=== PATIENT | female | born 1990 | race Caucasian/White ===

== ENCOUNTER 2017-08-26 21:09 | Emergency (ER) | payer SELFPAY ==
[~2017-08-26] VITALS: Ht 172.7 cm; Wt 86.4 kg
[~2017-08-26 21:09] MED LIST: CHILDREN'S VITA1 CTB PO; FLEXERIL 1010 MG/TAB PO; MOTRIN 200200 MG/TAB PO; NORCO 325 MG-51 TAB PO; TYLENOL 325MG325 MG; ULTRAM 50MG TAB50 MG PO; ZOFRAN8 MG PO; [UNRECOGNIZED DRUG - SUPPLY]
[2017-08-26 22:04] LABS: BASO # 0.1 (0.0-0.2); BASO % 0.7 % (0.0-2.0); EOS # 0.3 (0.0-0.7); EOS % 1.9 % (0-4.0); GRAN # 10.8 (1.4-6.5); GRAN % 71.5 % (42.2-75.2); HEMATOCRIT 43.5 % (37.0-47.0); HEMOGLOBIN 14.8 g/dl (12.5-16.0); LYMPH % 19.9 % (20.0-51.0); MEAN CELL VOLUME 88 fl (80.0-100.0); MEAN CORPUSCULAR HEMOGLOBIN 30 pg (27.0-31.0); MEAN CORPUSCULAR HGB CONC 34 g/dl (33.0-37.0); MEAN PLATELET VOLUME 10.9 fl (7.4-10.4); MONO # 0.9 (0.1-0.6); MONO % 5.6 % (1.7-9.3); PLATELET COUNT 214 K/mm3 (130-400); RED BLOOD COUNT 4.93 M/mm3 (4.10-5.30); REDCELL DISTRIBUTION WIDTH-CV 13.4 % (11.5-14.5)
[2017-08-26 22:16] LABS: ALBUMIN 4.5 gm/dL (3.5-5.0); BILIRUBIN,TOTAL 0.3 mg/dL (0.0-1.0); CALCIUM 9.6 mg/dL (8.4-10.2); CREATININE, serum 0.88 mg/dL (0.52-1.25); POTASSIUM 3.4 mmol/L (3.4-5.0); TOTAL PROTEIN 7.1 gm/dL (6.4-8.2)
[2017-08-26 23:22] VITALS: TEMP 98.5
[2017-08-27] MEDS ORDERED: ANTIVERT 25MG25 MG PO (00:07)
[2017-08-27 00:50] VITALS: BP 106/77; PULSE 68
== END 2017-08-27 00:52 | disposition home or self-care (01) ==
LOC: COL.ER 21:09
PROVIDERS: Nurse Practitioner
DX: R42 Dizziness and giddiness (principal); R51 Headache; F17.210 Nicotine dependence, cigarettes, uncomplicated; Z90.49 Acquired absence of other specified parts of digestive tract; Z90.89 Acquired absence of other organs
CPT/HCPCS: J1200; J1885; J2550; J7030

== ENCOUNTER 2018-04-15 10:38 | Emergency (ER) | payer OTHER ==
[~2018-04-15] VITALS: Ht 172.7 cm; Wt 89.1 kg
[~2018-04-15 10:38] MED LIST changes: +ANTIVERT 25MG25 MG PO
[2018-04-15 10:47] VITALS: TEMP 97.9
[2018-04-15 11:07] LABS: COLLECTION METHOD CLEAN CATCH
[2018-04-15 11:34] LABS: AMORPHOUS CRYSTAL Present /uL; PH 8 (5-8); URINE APPEARANCE Cloudy; URINE BACTERIA None Seen /hpf; URINE BILIRUBIN Negative (NEGATIVE); URINE BLOOD Negative (NEGATIVE); URINE COLOR Yellow; URINE GLUCOSE Negative (NEGATIVE); URINE KETONE Negative (NEGATIVE); URINE LEUKOCYTE ESTERASE Trace (NEGATIVE); URINE NITRATE Negative (NEGATIVE); URINE PROTEIN(semi-quant) Negative (NEGATIVE); URINE UROBILINOGEN Negative (NEGATIVE)
[2018-04-15 12:02] LABS: BASO # 0.1 (0.0-0.2); BASO % 0.5 % (0.0-2.0); EOS # 0.5 (0.0-0.7); EOS % 3.9 % (0-4.0); GRAN # 9.7 (1.4-6.5); GRAN % 72.7 % (42.2-75.2); HEMATOCRIT 43.3 % (37.0-47.0); HEMOGLOBIN 14.4 g/dl (12.5-16.0); LYMPH # 2.4 (1.2-3.4); LYMPH % 17.7 % (20.0-51.0); MEAN CELL VOLUME 88 fl (80.0-100.0); MEAN CORPUSCULAR HEMOGLOBIN 29 pg (27.0-31.0); MEAN CORPUSCULAR HGB CONC 33 g/dl (33.0-37.0); MEAN PLATELET VOLUME 10.7 fl (7.4-10.4); MONO # 0.6 (0.1-0.6); MONO % 4.7 % (1.7-9.3); PLATELET COUNT 239 K/mm3 (130-400); RED BLOOD COUNT 4.91 M/mm3 (4.10-5.30); REDCELL DISTRIBUTION WIDTH-CV 14.2 % (11.5-14.5)
[2018-04-15 12:24] LABS: BILIRUBIN,TOTAL 0.3 mg/dL (0.0-1.0); C-REACTIVE PROTEIN 1.3 mg/dL (0.0-0.9); CALCIUM 8.8 mg/dL (8.4-10.2); CREATININE, serum 0.82 mg/dL (0.52-1.25); TOTAL PROTEIN 6.9 gm/dL (6.4-8.2)
[2018-04-15 14:08] VITALS: BP 103/77; PULSE 67
[2018-04-15] MEDS ORDERED: CIPRO 500MG TA500 MG PO (14:14)
[2018-04-15] MEDS ORDERED: ZOFRAN ODT4 MG PO (14:14)
[2018-04-15] MEDS ORDERED: FLAGYL500 MG PO (14:14)
== END 2018-04-15 14:26 | disposition home or self-care (01) ==
LOC: COL.ER 10:38
PROVIDERS: Physician Assistant
DX: K52.9 Noninfective gastroenteritis and colitis, unspecified (principal); F17.210 Nicotine dependence, cigarettes, uncomplicated; F12.10 Cannabis abuse, uncomplicated; Z90.49 Acquired absence of other specified parts of digestive tract; Z88.2 Allergy status to sulfonamides; Z88.8 Allergy status to other drugs, medicaments and biological substances
CPT/HCPCS: J1885; J2405; J7030; Q9967

== ENCOUNTER 2022-02-26 18:06 | Emergency (ER) | payer SELFPAY ==
[~2022-02-26] VITALS: Ht 172.7 cm; Wt 88.6 kg
[~2022-02-26 18:06] MED LIST changes: +CIPRO 500MG TA500 MG PO; +FLAGYL500 MG PO; +ZOFRAN ODT4 MG PO
[2022-02-26 18:11] VITALS: TEMP 98.9
[2022-02-26 18:38] LABS: BASO # 0.1 K/mm3 (0.0-0.2); BASO % 0.7 % (0.0-2.0); EOS # 0.2 K/mm3 (0.0-0.7); EOS % 2.9 % (0.0-4.0); GRAN # 5.9 K/mm3 (1.4-6.5); GRAN % 84.4 % (42.2-75.2); HEMATOCRIT 39.7 % (37.0-47.0); HEMOGLOBIN 13.6 g/dl (12.5-16.0); LYMPH # 0.4 K/mm3 (1.2-3.4); LYMPH % 5.1 % (20.0-51.0); MEAN CELL VOLUME 88 fl (80.0-100.0); MEAN CORPUSCULAR HEMOGLOBIN 30 pg (27-31); MEAN CORPUSCULAR HGB CONC 34 g/dl (33.0-37.0); MEAN PLATELET VOLUME 10.3 fl (7.4-10.4); MONO # 0.4 K/mm3 (0.1-0.6); MONO % 6.3 % (1.7-9.3); PLATELET COUNT 224 K/mm3 (130-400); RED BLOOD COUNT 4.51 M/mm3 (4.10-5.30); REDCELL DISTRIBUTION WIDTH-CV 13.6 % (11.5-14.5)
[2022-02-26 18:42] LABS: COLLECTION METHOD CLEAN CATCH
[2022-02-26] MEDS ORDERED: SALONPAS1 EACH TP (18:46)
[2022-02-26 18:53] LABS: ALBUMIN 4.1 gm/dL (3.5-5.0); BILIRUBIN,TOTAL 0.3 mg/dL (0.2-1.2); CREATININE, serum 0.93 mg/dL (0.57-1.11); POTASSIUM 3.4 mmol/L (3.5-4.5); TOTAL PROTEIN 6.8 gm/dL (6.2-8.1)
[2022-02-26 18:54] LABS: MUCOUS Present (NOT PRESENT); PH 6 (5-8); SQUAMOUS EPITHELIAL 0-2 /hpf (0-10); URINE APPEARANCE Clear (CLEAR/HAZY); URINE BACTERIA None Seen /hpf (NONE SEEN); URINE BILIRUBIN Negative (NEGATIVE); URINE BLOOD Negative (NEGATIVE); URINE COLOR Yellow (YELLOW); URINE GLUCOSE Negative (NEGATIVE); URINE KETONE Negative (NEGATIVE); URINE LEUKOCYTE ESTERASE Negative (NEGATIVE); URINE NITRATE Negative (NEGATIVE); URINE PROTEIN(semi-quant) Negative (NEGATIVE); URINE RBC None Seen /hpf (0-2); URINE UROBILINOGEN Negative (NEGATIVE)
[2022-02-26 19:15] VITALS: BP 100/65; PULSE 94
== END 2022-02-26 19:30 | disposition home or self-care (01) ==
LOC: COL.ER 18:06
PROVIDERS: Physician Assistant
DX: U07.1 COVID-19 (principal); B34.9 Viral infection, unspecified; R00.0 Tachycardia, unspecified; F17.210 Nicotine dependence, cigarettes, uncomplicated; Z91.040 Latex allergy status; Z28.310 Unvaccinated for COVID-19
CPT/HCPCS: J1885; J7030

== ENCOUNTER 2023-12-21 12:45 | Emergency (ER) | payer MEDICAID ==
[~2023-12-21] VITALS: Ht 172.7 cm; Wt 102.3 kg
[~2023-12-21 12:45] MED LIST changes: +SALONPAS1 EACH TP
[2023-12-21 12:51] VITALS: TEMP 99.4
[2023-12-21] MEDS ORDERED: NS 1,000 ML IV ONE (13:30)
[2023-12-21] MEDS ORDERED: Ketorolac 30 MG/ML VIAL IV ONE (13:30)
[2023-12-21] MEDS ORDERED: Ondansetron 4 MG/2 ML VIAL IV ONE (13:30)
[2023-12-21 13:48] LABS: BASO % 0.3 % (0.0-2.0); EOS # 0.2 K/mm3 (0.0-0.7); EOS % 2.4 % (0.0-4.0); GRAN # 4.3 K/mm3 (1.4-6.5); GRAN % 58.6 % (42.2-75.2); HEMOGLOBIN 15.8 g/dl (12.5-16.0); LYMPH # 2.3 K/mm3 (1.2-3.4); LYMPH % 30.9 % (20.0-51.0); MEAN CELL VOLUME 91 fl (80.0-100.0); MEAN CORPUSCULAR HEMOGLOBIN 31 pg (27-31); MEAN CORPUSCULAR HGB CONC 34 g/dl (33.0-37.0); MEAN PLATELET VOLUME 10.9 fl (7.4-10.4); MONO # 0.6 K/mm3 (0.1-0.6); MONO % 7.4 % (1.7-9.3); PLATELET COUNT 188 K/mm3 (130-400); RED BLOOD COUNT 5.04 M/mm3 (4.10-5.30); REDCELL DISTRIBUTION WIDTH-CV 13.7 % (11.5-14.5)
[2023-12-21 13:59] LABS: ALBUMIN 3.9 g/dL (3.5-5.0); BILIRUBIN,TOTAL 0.3 mg/dL (0.2-1.2); CALCIUM 9.1 mg/dL (8.4-10.2); CREATININE, serum 0.86 mg/dL (0.57-1.11); POTASSIUM 4.4 mEq/L (3.5-4.5); TOTAL PROTEIN 6.9 g/dl (6.2-8.1)
[2023-12-21 15:27] LABS: COLLECTION METHOD CLEAN CATCH
[2023-12-21 15:38] LABS: PH 6.5 (5.0-8.5); URINE APPEARANCE CLEAR (CLEAR/HAZY); URINE BLOOD NEGATIVE (NEGATIVE); URINE COLOR YELLOW (YELLOW); URINE GLUCOSE NEGATIVE (NEGATIVE); URINE KETONE TRACE (NEGATIVE); URINE NITRATE NEGATIVE (NEGATIVE); URINE PROTEIN(semi-quant) TRACE (NEGATIVE)
[2023-12-21] MEDS ORDERED: ZOFRAN ODT4 MG PO (17:05)
[2023-12-21] MEDS ORDERED: TORADOL 10MG TA10 MG PO (17:05)
[2023-12-21] MEDS ORDERED: BROMFED DM COU118 ML PO (17:05)
[2023-12-21 17:20] VITALS: BP 103/73; PULSE 98
== END 2023-12-21 17:20 | disposition home or self-care (01) ==
LOC: COL.ER 12:45
PROVIDERS: Emergency Medicine
DX: J10.1 Influenza due to other identified influenza virus with other respiratory manifestations (principal); G43.909 Migraine, unspecified, not intractable, without status migrainosus; F17.210 Nicotine dependence, cigarettes, uncomplicated; Z79.02 Long term (current) use of antithrombotics/antiplatelets; Z79.899 Other long term (current) drug therapy; Z91.040 Latex allergy status
CPT/HCPCS: J1885; J2405; J7030

== ENCOUNTER 2024-06-24 15:44 | Emergency (ER) | payer MEDICAID ==
[~2024-06-24] VITALS: Ht 172.7 cm; Wt 104.5 kg
[~2024-06-24 15:44] MED LIST changes: +BROMFED DM COU118 ML PO; +TORADOL 10MG TA10 MG PO
[2024-06-24 15:51] VITALS: TEMP 98
[2024-06-24] MEDS ORDERED: Ketorolac 30 MG/ML VIAL IV ONE (16:45)
[2024-06-24] MEDS ORDERED: NS 1,000 ML IV ONE (16:45)
[2024-06-24 17:08] LABS: HEMOGLOBIN 14.7 g/dl (12.5-16.0); MEAN CELL VOLUME 92 fl (80.0-100.0); MEAN CORPUSCULAR HEMOGLOBIN 31 pg (27-31); MEAN CORPUSCULAR HGB CONC 33 g/dl (33.0-37.0); MEAN PLATELET VOLUME 10.3 fl (7.4-10.4); PLATELET COUNT 354 K/mm3 (130-400); RED BLOOD COUNT 4.76 M/mm3 (4.10-5.30); REDCELL DISTRIBUTION WIDTH-CV 13.2 % (11.5-14.5)
[2024-06-24 17:37] LABS: ALBUMIN 3.9 g/dL (3.5-5.0); C-REACTIVE PROTEIN 0.15 mg/dL (0.00-0.50); CALCIUM 9.3 mg/dL (8.4-10.2); CREATININE, serum 0.78 mg/dL (0.57-1.11); POTASSIUM 4.4 mEq/L (3.5-4.5); TOTAL PROTEIN 6.9 g/dl (6.2-8.1)
[2024-06-24 17:43] LABS: TROPONIN-I 0.012 ng/mL (0.00-0.033)
[2024-06-24 17:53] LABS: COLLECTION METHOD CLEAN CATCH
[2024-06-24 17:59] LABS: PH 6.5 (5.0-8.5); URINE APPEARANCE CLEAR (CLEAR/HAZY); URINE BLOOD NEGATIVE (NEGATIVE); URINE COLOR YELLOW (YELLOW); URINE GLUCOSE NEGATIVE (NEGATIVE); URINE KETONE NEGATIVE (NEGATIVE); URINE NITRATE NEGATIVE (NEGATIVE); URINE PROTEIN(semi-quant) NEGATIVE (NEGATIVE); URINE UROBILINOGEN 0.2 E.U/dL (0.2-1.0)
[2024-06-24 18:28] LABS: BILIRUBIN,TOTAL 0.2 mg/dL (0.2-1.2)
[2024-06-24] MEDS ORDERED: INDERAL80 MG PO (18:35)
[2024-06-24] MEDS ORDERED: DOXYCYCLINE 10100 MG PO (18:36)
[2024-06-24] MEDS ORDERED: PLAQUENIL 200M200 MG PO (18:36)
[2024-06-24] MEDS ORDERED: PLAVIX 75MG TAB75 MG PO (18:36)
[2024-06-24] MEDS ORDERED: DOXYCYCLINE HY100 MG (18:37)
[2024-06-24 18:46] LABS: BAND 4 % (0-10); EOSINOPHIL 1 % (0-4); LYMPHOCYTE 17 % (20.0-51.0); NEUTROPHILS 73 % (42.0-75.2)
[2024-06-24 18:48] LABS: PLATELET ESTIMATE NORMAL (NORMAL)
[2024-06-24] MEDS ORDERED: Iohexol 350 - 100 ML VIAL IV ONE (19:17)
[2024-06-24] MEDS ORDERED: NS 100 ML IV ONE (19:17)
[2024-06-24 20:08] VITALS: BP 125/77; PULSE 70
== END 2024-06-24 20:09 | disposition home or self-care (01) ==
LOC: COL.ER 15:44
PROVIDERS: Nurse Practitioner
DX: J40 Bronchitis, not specified as acute or chronic (principal); R10.30 Lower abdominal pain, unspecified
CPT/HCPCS: J1885; J7030; Q9967